=== PATIENT | male | born 1955 | race Caucasian/White ===

== ENCOUNTER 2016-08-10 03:22 | Emergency (ER) | payer BC ==
[2016-08-10] MEDS ORDERED: NORMAL SALINE 1,000 ML IV ONE (03:58)
[2016-08-10] MEDS ORDERED: ONDANSETRON HCL/PF 2 MG/ML VIAL IV ONE (03:58)
--- OUTSIDE RECORDS SUMMARY | 2016-08-10 04:12 | XMS REPORT | Continuity of Care Document ---
:1955 Author Organization [facility] ([facility]) [place] [address] Phone [phone] Care Team Providers Name Role Phone Unavailable Primary Care Provider Unavailable Source Comments This disclosure is being made pursuant to the Care Everywhere program, applicable federal and state laws, and may not contain all informaitonavailable regarding this patient.[facility] ([facility]) Active Allergies and Adverse Reactions Not on File Current Medications Not on file Active Problems Not on file Social History Tobacco Use Types Packs/Day Years Used Date Never Assessed Plan of Care Health Maintenance Due Date Last Done Comments HCV Screening 1955 Hepatitis B Vaccine (1 of 3 - Primary Series) 1955 Tdap Vaccine 1964 Lipid Disorder Screening 1971 Td Vaccine 1971 Colonoscopy 2003 Prostate Cancer Screening 2003 Zoster Vaccine 2013 Influenza Vaccine: Seasonal (#1) 01/26/2016 Results from Last 3 Months Not on file
[2016-08-10 04:20] LABS: Hematocrit 47.9 % (42.0-52.0); Mean Corpuscular Hemoglobin 29.8 pg (27-31); Mean Corpuscular Hgb Conc 35.5 g/dl (32-36); Mean Platelet Volume 10.3 fl (6.0-9.5); Neutrophil # 8.1 K/mm3 (1.3-6.0); Neutrophil % 78.7 % (42-75.0); Platelet Count 203 K/mm3 (150-450); White Blood Count 10.3 K/mm3 (4.0-10.5)
--- NOTE | 2016-08-10 04:26 | ERNOTE ---
Medical Problem HPI - General Chief Complaint: Nausea/Vomiting Time Seen by Provider: 08/10/16 03:53 Source: patient Exam Limitations: no limitations - Immun/Allergies/Home Medications Immunizations: IMMUNIZATION HX History of Influenza Vaccine No Hx Pneumococcal Vaccination No Allergies/Adverse Reactions: Allergies bacitracin zinc [From Neosporin ([id number])] Allergy (Verified 08/10/16 03: 34) neomycin sulfate [From Neosporin ([id number])] Allergy (Verified 08/10/16 03: 34) polymyxin B [From Neosporin ([id number])] Allergy (Verified 08/10/16 03:34) Home Medications: HOME MEDICATIONS Lisinopril 1 tab PO DAILY 08/10/16 [Last Taken Unknown] Omeprazole [Prilosec] 20 mg PO DAILY 08/10/16 [Last Taken Unknown] Ondansetron HCl [Zofran] 1 - 2 mg PO Q8H PRN #10 tab 08/10/16 [Last Taken Unknown] glipiZIDE 1 tab PO DAILY 08/10/16 [Last Taken Unknown] - History of Present History Narrative: Pt states he has had nausea x 2 days. He tried to go to work this morning and only lasted to noon. He tried chicken noodle soup and continued to be nauseated. Timing: getting worse Severity: moderate Review of Systems - Review of Systems Constitutional: Present: chills. Absent: fever EYE: Present: no symptoms reported ENT: Present: no symptoms reported Respiratory: Present: no symptoms reported Cardiology: Present: no symptoms reported Gastrointestinal/Abdominal: Present: See HPI Genitourinary: Present: no symptoms reported Musculoskeletal: Present: muscle stiffness Skin: Present: no symptoms reported Neurological: Present: no symptoms reported Endocrine: Present: other - elevated blood glucose Hematologic/Lymphatic: Present: no symptoms reported Psych: Present: no symptoms reported - Patient's Past Medical History Patient History - Medical: Diabetes Type 2, Renal Failure Patient History - Cardiac/Respiratory: Hypertension Patient History - Cancer: Melanoma Patient History - Surgical Procedures: Total Hip Replacement Patient History - Other: None - Social History Living Situations: home Abuse History: No History of abuse Psych History: No pertinent hx Smoking Status: Never smoker Have you smoked in the past 12 months: No Alcohol Use: rarely Drug Use: none - Immunizations Hx Pneumococcal Vaccination: No History of Influenza Vaccine: No Physical Exam - Physical Exam General Appearance: Present: wd/wn, alert, mild distress Ears, Nose, Throat: Present: normal ENT inspection, hearing grossly normal Neck: Present: normal inspection, nontender Respiratory: Present: no respiratory distress Cardiovascular/Chest: Present: regular rate, rhythm, no murmur Gastrointestinal/Abdominal: Present: tenderness - generalized , abnormal bowel sounds - hyperactive. Absent: distended, guarding, rebound Back Exam: Present: normal inspection Extremity Exam: Present: normal inspection, non-tender Neurological Exam: Present: alert, oriented, normal mood/affect, no motor/ sensory deficits Skin Exam: Present: normal color, warm/dry ED Progress - Results and Orders Patient's Lab Results:: I have reviewed the patient's lab results. Results and Orders: Laboratory Tests 08/10/16 08/10/16 03:58 03:58 WBC 10.3 Hgb 17.0 Hct 47.9 Plt Count 203 Sodium 132 Potassium 3.1 L Chloride 93 L Carbon Dioxide 28.9 BUN 7 D Creatinine 0.82 Random Glucose 228 H Calcium 9.1 Total Bilirubin 0.8 AST 14 ALT 28 Alkaline Phosphatase 105 Total Protein 7.5 Albumin 3.6 - Vital Signs Patient's Vital Signs:: I have reviewed the patient's vital signs. Vital Signs: Vital Signs 08/10/16 03:27 Temperature 37.2 C Pulse Rate 100 Respiratory 18 Rate Blood Pressure 148/92 O2 Sat by Pulse 96 Oximetry - X-Ray X-Ray #1 X-Ray: abdomen Interpretation: Interp. by me X-ray Comments: non-specific gas pattern. non obstructive - Progress/Reassessment Chief Complaint: Nausea/Vomiting Progress:: Improved Progress Note-Subjective: 08/10/16 05:36 IV fluids complete pt feeling better, still has some headache. Ready to go home Departure - Departure Clinical Impression: Nausea Disposition: Home self-care Condition: Good Instructions: Nausea, Adult Referrals: Mariel Banks MD [Primary Care Provider] - Prescriptions: Ondansetron HCl [Zofran] 1 - 2 mg PO Q8H PRN #10 tab PRN Reason: Nausea
[2016-08-10 04:35] LABS: Albumin * 3.6 gm/dl (3.4-5.0); Anion Gap 13.2 mmol/L (6.8-13.8); BUN/Creatinine Ratio 8.5 (9.0-21.6); Bilirubin, Total 0.8 mg/dL (0.0-1.1); Ca. Corrected For Albumin 9.1 mg/dL (8.4-10.2); Calcium * 9.1 mg/dL (7.9-10.9); Carbon Dioxide 28.9 mmol/L (24-32.6); Potassium 3.1 mmol/L (3.4-4.6); Total Protein 7.5 gm/dL (6.2-8.2)
[2016-08-10 05:36] VITALS: BP 147/95
== END 2016-08-10 05:45 | disposition home or self-care (01) ==
LOC: ER 03:22
DX: R11.0 Nausea (principal)